=== PATIENT | female | born 1970 | race Caucasian/White ===

== ENCOUNTER 2017-07-20 17:25 | Emergency (ER) | payer BC ==
[2015-03-25 11:14] VITALS: BMI 24.8
[~2017-07-20 17:25] MED LIST: ADDERALL 20 MG20 M1 PO; DYAZIDE 37.5/251 CAP PO; ENDOCET 10-3251 TAB PO; KLONOPIN1 MG PO; ROBAXIN500 MG PO; SOMA350 MG PO; VENTOLIN HFA18 GM INH; ZOLOFT100 MG PO
[2017-07-20 18:08] LABS: BASOPHILS 0.1 % (0-2); EOSINOPHILS 0.5 % (0-7); HEMATOCRIT 42.9 % (36.0-48.0); HEMOGLOBIN 15.4 g/dL (12-16); IMMATURE GRANULOCYTES 0.3 % (0-5); LYMPHOCYTES 10.8 % (15-50); MCH 32.8 pg (26.0-34.0); MCHC 35.9 g/dL (31.0-37.0); MCV 91.5 fL (80.0-100.0); MEAN PLATELET VOLUME 9.4 fL (7.4-10.4); MONOCYTES 4.7 % (2-11); NEUTROPHILS 83.6 % (40-80); PLATELET COUNT 287 10x3/uL (130-400); RBC 4.69 10x6/uL (4.00-5.40); RDW 12.1 % (11.5-14.5)
== END 2017-07-20 19:15 | disposition home or self-care (01) ==
LOC: D.ER 17:25
PROVIDERS: Emergency Medicine
DX: M25.511 Pain in right shoulder (principal); M25.552 Pain in left hip; M54.2 Cervicalgia; M54.6 Pain in thoracic spine; V43.52XA Car driver injured in collision with other type car in traffic accident, initial encounter; Y93.89 Activity, other specified; Y92.410 Unspecified street and highway as the place of occurrence of the external cause; F17.200 Nicotine dependence, unspecified, uncomplicated

== ENCOUNTER → 2019-07-26 22:00 | Outpatient (CLI) | payer SELFPAY ==
[2015-03-25 11:14] VITALS: BMI 24.8
== END | disposition home or self-care (01) ==
LOC: D.MAMMO 14:30
PROVIDERS: ATTEND Emergency Medicine
DX: R92.8 Other abnormal and inconclusive findings on diagnostic imaging of breast (principal)